=== PATIENT | male | born 1955 | race African-American/Black ===

== ENCOUNTER 2018-09-11 13:03 | Inpatient (IN) | payer OTHER ==
[2018-09-11 13:55] VITALS: BMI 25.9
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
[2018-09-11] MEDS ORDERED: MAGNESIUM HYDROX 2400MG/30ML ORAL SUSPENSION 30 ML CUP PO PRN (18:18)
[2018-09-11] MEDS ORDERED: MAG HYDROX/AL HYDROX/SIMETH 30 ML UNIT-DOSE CUP PO PRN (18:18)
[2018-09-11] MEDS ORDERED: ACETAMINOPHEN 325 MG TABLET (FP) PO PRN (18:18)
[2018-09-11] MEDS ORDERED: MENTHOL/PHENOL 1 EACH UD MM PRN (18:18)
[2018-09-11] MEDS ORDERED: LOPERAMIDE HCL 2 MG CAPSULE PO PRN (18:18)
[2018-09-11] MEDS ORDERED: P-EPHED 60MG/TRIPROLIDI 2.5MG TABLET PO PRN (18:18)
[2018-09-11] MEDS ORDERED: IBUPROFEN 400 MG TABLET (FP) PO PRN (18:18)
[2018-09-11] MEDS ORDERED: MAGNESIUM CITRATE 300 ML BOTTLE PO PRN (18:18)
[2018-09-11] MEDS ORDERED: NICOTINE POLACRILEX 2 MG GUM BC PRN (18:18)
[2018-09-11] MEDS ORDERED: guaiFENesin/D-METHORPHAN HB 10 ML UNIT-DOSE CUPS PO PRN (18:18)
[2018-09-11] MEDS ORDERED: METHADONE HCL 10 MG TABLET (FOR DETOX USE ONLY) PO ONE ×2 (18:20→23:00)
[2018-09-11] MEDS: diazePAM 5 MG TABLET PO PRN (19:56)
[2018-09-11] MEDS ORDERED: cloNIDine HCL 0.1 MG TABLET PO ONE (20:24)
--- NOTE | 2018-09-11 20:24 | PN ---
S Progress Note Note: Current B/P: 190/102 and 184/112. HR: 68. Patient states did not take B/P meds today. Currently demonstrating withdrawal symptoms. Will give once dose of CloNidine 0.2 mg.
[2018-09-11] MEDS: ATORVASTATIN CA 10 MG TABLET (FP) PO SCH (23:11)
[2018-09-11] MEDS: THIAMINE HCL 100 MG TABLET (FP) PO SCH (23:12)
[2018-09-12] MEDS: diazePAM 5 MG TABLET PO PRN ×2 (06:33→23:14)
[2018-09-12] MEDS ORDERED: METHADONE HCL 10 MG TABLET (FOR DETOX USE ONLY) PO ONE (10:00)
[2018-09-12 10:24] LABS: HEMATOCRIT 39.4 % (35.4-49); HEMOGLOBIN 13.3 GM/dL (11.7-16.9); MCH 28.5 pg (25.7-33.7); MCHC 33.8 g/dl (32.0-35.9); MEAN CELL VOLUME 84.3 fl (80-96); MEAN PLT VOLUME 10.1 fl (7.5-11.1); PLATELET COUNT 173 K/MM3 (134-434); RBC 4.67 M/mm3 (4.00-5.60); RDW 14.5 % (11.9-15.9); WHITE BLOOD COUNT 3.8 K/mm3 (4.0-10.0)
[2018-09-12 10:26] LABS: URINE APPEARANCE CLEAR; URINE BILIRUBIN NEGATIVE (<2.0 mg/dL); URINE COLOR LTYELLOW; URINE GLUCOSE (UA) NEGATIVE (NEGATIVE); URINE KETONE NEGATIVE (NEGATIVE); URINE LEUK ESTERASE NEGATIVE (NEGATIVE); URINE NITRITE NEGATIVE (NEGATIVE); URINE PROTEIN NEGATIVE (NEGATIVE)
[2018-09-12] MEDS: HYDROCHLOROTHIAZIDE 25 MG TABLET (FP) PO SCH (10:57)
[2018-09-12] MEDS: METOPROLOL TARTRATE 50 MG TABLET (FP) PO SCH (10:57)
[2018-09-12] MEDS: amLODIPine BESYLATE 10 MG TABLET (FP) PO SCH (10:57)
[2018-09-12] MEDS: LISINOPRIL 10 MG TABLET (FP) PO SCH (10:58)
[2018-09-12] MEDS: PRENATAL VITAMINS W/ FOLIC ACID TABLET (FP) PO SCH (10:58)
[2018-09-12] MEDS: NICOTINE 7 MG/24 HOURS TOPICAL PATCH TD SCH (10:58)
[2018-09-12 11:01] LABS: ALBUMIN 3.3 g/dl (3.4-5.0); ALK PHOS 92 U/L (45-117); ANION GAP 7 MMOL/L (8-16); BILIRUBIN,TOTAL 0.9 mg/dL (0.2-1); BLOOD UREA NITROGEN 19 mg/dL (7-18); CALCIUM 8.9 mg/dL (8.5-10.1); CHLORIDE 105 mmol/L (98-107); CO2 28 mmol/L (21-32); CREATININE 1.1 mg/dL (0.55-1.3); GLUCOSE,RANDOM 137 mg/dL (74-106); POTASSIUM 3.7 mmol/L (3.5-5.1); SGOT/AST 14 U/L (15-37); SGPT/ALT 22 U/L (13-61); SODIUM 140 mmol/L (136-145); TOT PROT 6.2 g/dl (6.4-8.2)
--- NOTE | 2018-09-12 13:54 | PN ---
S CIWA - CIWA Score Nausea/Vomitin-No Nausea/No Vomiting Muscle Tremors: 4-Moderate,w/Arms Extend Anxiety: 4-Mod. Anxious/Guarded Agitation: 4-Moderately Restless Paroxysmal Sweats: 1-Minimal Palms Moist Orientation: 0-Oriented Tacttile Disturbances: 0-None Auditory Disturbances: 0-None Visual Disturbances: 0-None Headache: 0-None Present CIWA-Ar Total Score: 13 S COWS - Scale Resting Pulse: 0= [place] 80 or Below Sweatin= Chills/Flushing Restless Observation: 0= Sits Still Pupil Size: 0= Normal to Room Light Bone or Joint Aches: 4=Acute Joint/Muscle Pain Runny Nose/ Eye Tearin= None GI Upset > 30mins: 0= None Tremor Observation of Outstretched Hands: 2= Slight Tremor Visible Yawning Observation: 1= 1-2x During Session Anxiety or Irritability: 2=Irritable/Anxious Goose Flesh Skin: 0=Smooth Skin COWS Score: 10 S Progress Note (SOAP) Subjective: ANXIETY, SWEATS, FATIGUE. Objective: 09/12/18 13:55 Vital Signs 09/12/18 09/12/18 09/12/18 06:00 07:00 10:04 Temperature 98.1 F 97.7 F Pulse Rate 56 L 59 L 63 Respiratory 18 18 18 Rate Blood Pressure 168/98 139/97 120/72 Laboratory Tests 09/12/18 09/12/18 09/12/18 07:40 07:40 07:40 WBC 3.8 L RBC 4.67 Hgb 13.3 Hct 39.4 MCV 84.3 MCH 28.5 MCHC 33.8 RDW 14.5 Plt Count 173 MPV 10.1 Sodium 140 Potassium 3.7 Chloride 105 Carbon Dioxide 28 Anion Gap 7 L BUN 19 H Creatinine 1.1 Creat Clearance w eGFR > 60 Random Glucose 137 H Calcium 8.9 Total Bilirubin 0.9 AST 14 L ALT 22 Alkaline Phosphatase 92 Total Protein 6.2 L Albumin 3.3 L Urine Color Urine Appearance Urine pH Ur Specific [place] Urine Protein Urine Glucose (UA) Urine Ketones Urine Blood Urine Nitrite Urine Bilirubin Urine Urobilinogen Ur Leukocyte Esterase RPR Titer Nonreactive HIV 1&2 Antibody Screen HIV P24 Antigen 09/12/18 09/12/18 07:40 07:40 WBC RBC Hgb Hct MCV MCH MCHC RDW Plt Count MPV Sodium Potassium Chloride Carbon Dioxide Anion Gap BUN Creatinine Creat Clearance w eGFR Random Glucose Calcium Total Bilirubin AST ALT Alkaline Phosphatase Total Protein Albumin Urine Color Ltyellow Urine Appearance Clear Urine pH 6.0 Ur Specific [place] 1.020 Urine Protein Negative Urine Glucose (UA) Negative Urine Ketones Negative Urine Blood Negative Urine Nitrite Negative Urine Bilirubin Negative Urine Urobilinogen 2.0 Ur Leukocyte Esterase Negative RPR Titer HIV 1&2 Antibody Screen Negative HIV P24 Antigen Negative Assessment: 09/12/18 13:55 WITHDRAWAL SX Plan: CONTINUE DETOX
--- NOTE | 2018-09-12 22:18 | EKG ---
Test Reason : Blood Pressure : / mmHG Vent. Rate : 061 BPM Atrial Rate : 061 BPM P-R Int : 164 ms QRS Dur : 090 ms QT Int : 464 ms P-R-T Axes : 071 062 061 degrees QTc Int : 467 ms NORMAL SINUS RHYTHM POSSIBLE LEFT ATRIAL ENLARGEMENT LEFT VENTRICULAR HYPERTROPHY ABNORMAL ECG NO PREVIOUS ECGS AVAILABLE Confirmed by ELIEZER AUGUST MD ([id number]) on 09/12/2018 10:18:01 PM Referred By: Confirmed By:ELIEZER AUGUST MD
[2018-09-12] MEDS: hydrOXYzine PAMOATE 50 MG CAPSULE (FP) PO PRN (23:14)
[2018-09-12] MEDS: THIAMINE HCL 100 MG TABLET (FP) PO SCH (23:14)
[2018-09-12] MEDS: ATORVASTATIN CA 10 MG TABLET (FP) PO SCH (23:14)
[2018-09-13] MEDS ORDERED: METHADONE HCL 5 MG TABLET (FOR DETOX USE ONLY) PO ONE (10:00)
[2018-09-13] MEDS: NICOTINE 7 MG/24 HOURS TOPICAL PATCH TD SCH (10:27)
[2018-09-13] MEDS: HYDROCHLOROTHIAZIDE 25 MG TABLET (FP) PO SCH (10:27)
[2018-09-13] MEDS: PRENATAL VITAMINS W/ FOLIC ACID TABLET (FP) PO SCH (10:27)
[2018-09-13] MEDS: amLODIPine BESYLATE 10 MG TABLET (FP) PO SCH (10:27)
[2018-09-13] MEDS: METOPROLOL TARTRATE 50 MG TABLET (FP) PO SCH (10:27)
[2018-09-13] MEDS: LISINOPRIL 10 MG TABLET (FP) PO SCH (10:29)
--- NOTE | 2018-09-13 16:47 | PN ---
S COWS - Scale Resting Pulse: 0= [place] 80 or Below Sweatin= Chills/Flushing Restless Observation: 3= Extraneous Movement Pupil Size: 0= Normal to Room Light Bone or Joint Aches: 2= Severe Diffuse Aches Runny Nose/ Eye Tearin= Runny Nose/Eyes GI Upset > 30mins: 1= Stomach Cramp Tremor Observation of Outstretched Hands: 2= Slight Tremor Visible Yawning Observation: 0= None Anxiety or Irritability: 1=Feels Anxious/Irritable Goose Flesh Skin: 0=Smooth Skin COWS Score: 12 S Progress Note (SOAP) Subjective: Sweating, interrupted sleep Objective: 09/13/18 16:43 Last Vital Signs Temp Pulse Resp BP Pulse Ox 97.9 F 57 L 18 134/98 09/13/18 13:29 09/13/18 13:29 09/13/18 13:29 09/13/18 13:29 Laboratory Tests 09/12/18 09/12/18 09/12/18 07:40 07:40 07:40 WBC 3.8 L RBC 4.67 Hgb 13.3 Hct 39.4 MCV 84.3 MCH 28.5 MCHC 33.8 RDW 14.5 Plt Count 173 MPV 10.1 Sodium 140 Potassium 3.7 Chloride 105 Carbon Dioxide 28 Anion Gap 7 L BUN 19 H Creatinine 1.1 Creat Clearance w eGFR > 60 Random Glucose 137 H Calcium 8.9 Total Bilirubin 0.9 AST 14 L ALT 22 Alkaline Phosphatase 92 Total Protein 6.2 L Albumin 3.3 L Urine Color Urine Appearance Urine pH Ur Specific [place] Urine Protein Urine Glucose (UA) Urine Ketones Urine Blood Urine Nitrite Urine Bilirubin Urine Urobilinogen Ur Leukocyte Esterase RPR Titer Nonreactive HIV 1&2 Antibody Screen HIV P24 Antigen 09/12/18 09/12/18 07:40 07:40 WBC RBC Hgb Hct MCV MCH MCHC RDW Plt Count MPV Sodium Potassium Chloride Carbon Dioxide Anion Gap BUN Creatinine Creat Clearance w eGFR Random Glucose Calcium Total Bilirubin AST ALT Alkaline Phosphatase Total Protein Albumin Urine Color Ltyellow Urine Appearance Clear Urine pH 6.0 Ur Specific [place] 1.020 Urine Protein Negative Urine Glucose (UA) Negative Urine Ketones Negative Urine Blood Negative Urine Nitrite Negative Urine Bilirubin Negative Urine Urobilinogen 2.0 Ur Leukocyte Esterase Negative RPR Titer HIV 1&2 Antibody Screen Negative HIV P24 Antigen Negative Labs reviewed: serum glucose 137 Assessment: 09/13/18 16:45 Withdrawal symptoms Noted with hyperglycemia Plan: Continue detox Encouraged PO water hydration Hyperglycemia: could be r/t alcoholism, repeat fasting glucose
[2018-09-14] MEDS: THIAMINE HCL 100 MG TABLET (FP) PO SCH ×2 (00:17→23:12)
[2018-09-14] MEDS: ATORVASTATIN CA 10 MG TABLET (FP) PO SCH ×2 (00:17→23:11)
[2018-09-14] MEDS ORDERED: METOPROLOL TARTRATE 50 MG TABLET (FP) PO SCH (06:51)
[2018-09-14] MEDS ORDERED: LISINOPRIL 10 MG TABLET (FP) PO SCH (06:51)
[2018-09-14] MEDS: METOPROLOL TARTRATE 50 MG TABLET (FP) PO SCH (07:11)
[2018-09-14] MEDS: LISINOPRIL 10 MG TABLET (FP) PO SCH (07:12)
[2018-09-14] MEDS ORDERED: METHADONE HCL 5 MG TABLET (FOR DETOX USE ONLY) PO ONE (10:00)
[2018-09-14] MEDS: HYDROCHLOROTHIAZIDE 25 MG TABLET (FP) PO SCH (10:50)
[2018-09-14] MEDS: NICOTINE 7 MG/24 HOURS TOPICAL PATCH TD SCH (10:50)
[2018-09-14] MEDS: amLODIPine BESYLATE 10 MG TABLET (FP) PO SCH (10:50)
[2018-09-14] MEDS: PRENATAL VITAMINS W/ FOLIC ACID TABLET (FP) PO SCH (10:50)
--- NOTE | 2018-09-14 13:58 | PN ---
BHS Progress Note (SOAP) Subjective: GOOSE BUMPS SWEATS Objective: 09/14/18 13:57 IN BED A & OX 3 NOT IN ACUTE DISTRESS Vital Signs Temperature 98.4 F 09/14/18 09:15 Pulse Rate 61 09/14/18 09:15 Respiratory Rate 16 09/14/18 09:15 Blood Pressure 154/77 09/14/18 09:15 O2 Sat by Pulse Oximetry (%) Laboratory Last Values WBC 3.8 K/mm3 (4.0-10.0) L 09/12/18 07:40 RBC 4.67 M/mm3 (4.00-5.60) 09/12/18 07:40 Hgb 13.3 GM/dL (11.7-16.9) 09/12/18 07:40 Hct 39.4 % (35.4-49) 09/12/18 07:40 MCV 84.3 fl (80-96) 09/12/18 07:40 MCH 28.5 pg (25.7-33.7) 09/12/18 07:40 MCHC 33.8 g/dl (32.0-35.9) 09/12/18 07:40 RDW 14.5 % (11.9-15.9) 09/12/18 07:40 Plt Count 173 K/MM3 (134-434) 09/12/18 07:40 MPV 10.1 fl (7.5-11.1) 09/12/18 07:40 Sodium 140 mmol/L (136-145) 09/12/18 07:40 Potassium 3.7 mmol/L (3.5-5.1) 09/12/18 07:40 Chloride 105 mmol/L (98-107) 09/12/18 07:40 Carbon Dioxide 28 mmol/L (21-32) 09/12/18 07:40 Anion Gap 7 MMOL/L (8-16) L 09/12/18 07:40 BUN 19 mg/dL (7-18) H 09/12/18 07:40 Creatinine 1.1 mg/dL (0.55-1.3) 09/12/18 07:40 Creat Clearance w eGFR > 60 (>60) 09/12/18 07:40 Random Glucose 137 mg/dL (74-106) H 09/12/18 07:40 Fasting Glucose 149 mg/dL (74-106) H 09/14/18 07:40 Calcium 8.9 mg/dL (8.5-10.1) 09/12/18 07:40 Total Bilirubin 0.9 mg/dL (0.2-1) 09/12/18 07:40 AST 14 U/L (15-37) L 09/12/18 07:40 ALT 22 U/L (13-61) 09/12/18 07:40 Alkaline Phosphatase 92 U/L (45-117) 09/12/18 07:40 Total Protein 6.2 g/dl (6.4-8.2) L 09/12/18 07:40 Albumin 3.3 g/dl (3.4-5.0) L 09/12/18 07:40 Urine Color Ltyellow 09/12/18 07:40 Urine Appearance Clear 09/12/18 07:40 Urine pH 6.0 (5.0-8.0) 09/12/18 07:40 Ur Specific [place] 1.020 (1.010-1.035) 09/12/18 07:40 Urine Protein Negative (NEGATIVE) 09/12/18 07:40 Urine Glucose (UA) Negative (NEGATIVE) 09/12/18 07:40 Urine Ketones Negative (NEGATIVE) 09/12/18 07:40 Urine Blood Negative (NEGATIVE) 09/12/18 07:40 Urine Nitrite Negative (NEGATIVE) 09/12/18 07:40 Urine Bilirubin Negative (<2.0 mg/dL) 09/12/18 07:40 Urine Urobilinogen 2.0 mg/dL (0.2-1.0) 09/12/18 07:40 Ur Leukocyte Esterase Negative (NEGATIVE) 09/12/18 07:40 RPR Titer Nonreactive (NONREACTIVE) 09/12/18 07:40 HIV 1&2 Antibody Screen Negative 09/12/18 07:40 HIV P24 Antigen Negative 09/12/18 07:40 Assessment: 09/14/18 13:57 WITHDRAWAL SX ELEVATED FASTING GLUCOSE Plan: CONTINUE DETOX CONTINUE INCREASED WATER HYDRATION DIET CHANGED TO NO CONCENTRATED DIET
[2018-09-14] MEDS: hydrOXYzine PAMOATE 50 MG CAPSULE (FP) PO PRN (23:11)
[2018-09-14] MEDS: MELATONIN 5 MG TABLETS PO PRN (23:12)
[2018-09-15] MEDS: METOPROLOL TARTRATE 50 MG TABLET (FP) PO SCH (06:29)
[2018-09-15] MEDS: LISINOPRIL 10 MG TABLET (FP) PO SCH (07:39)
[2018-09-15] MEDS ORDERED: METHADONE HCL 10 MG TABLET (FOR DETOX USE ONLY) PO ONE (10:00)
[2018-09-15] MEDS: NICOTINE 7 MG/24 HOURS TOPICAL PATCH TD SCH (10:12)
[2018-09-15] MEDS: PRENATAL VITAMINS W/ FOLIC ACID TABLET (FP) PO SCH (10:13)
[2018-09-15] MEDS: amLODIPine BESYLATE 10 MG TABLET (FP) PO SCH (10:13)
[2018-09-15] MEDS: HYDROCHLOROTHIAZIDE 25 MG TABLET (FP) PO SCH (10:13)
--- NOTE | 2018-09-15 13:36 | PN ---
BHS Progress Note (SOAP) Subjective: Patient denies current Withdrawal / Detox symptoms and reports that he feels well overall. Objective: PATIENT A & O X 2 (UNCERTAIN ABOUT CURRENT DAY / DATE). PATIENT OBSERVED AMBULATING ON UNIT. IN NO ACUTE DISTRESS. 09/15/18 13:32 Vital Signs Temperature 97.9 F 09/15/18 10:00 Pulse Rate 51 L 09/15/18 10:00 Respiratory Rate 16 09/15/18 10:00 Blood Pressure 130/82 09/15/18 10:00 O2 Sat by Pulse Oximetry (%) Laboratory Tests 09/12/18 09/12/18 09/12/18 07:40 07:40 07:40 WBC 3.8 L RBC 4.67 Hgb 13.3 Hct 39.4 MCV 84.3 MCH 28.5 MCHC 33.8 RDW 14.5 Plt Count 173 MPV 10.1 Sodium 140 Potassium 3.7 Chloride 105 Carbon Dioxide 28 Anion Gap 7 L BUN 19 H Creatinine 1.1 Creat Clearance w eGFR > 60 Random Glucose 137 H Fasting Glucose Calcium 8.9 Total Bilirubin 0.9 AST 14 L ALT 22 Alkaline Phosphatase 92 Total Protein 6.2 L Albumin 3.3 L Urine Color Urine Appearance Urine pH Ur Specific [place] Urine Protein Urine Glucose (UA) Urine Ketones Urine Blood Urine Nitrite Urine Bilirubin Urine Urobilinogen Ur Leukocyte Esterase RPR Titer Nonreactive HIV 1&2 Antibody Screen HIV P24 Antigen 09/12/18 09/12/18 09/14/18 07:40 07:40 07:40 WBC RBC Hgb Hct MCV MCH MCHC RDW Plt Count MPV Sodium Potassium Chloride Carbon Dioxide Anion Gap BUN Creatinine Creat Clearance w eGFR Random Glucose Fasting Glucose 149 H Calcium Total Bilirubin AST ALT Alkaline Phosphatase Total Protein Albumin Urine Color Ltyellow Urine Appearance Clear Urine pH 6.0 Ur Specific [place] 1.020 Urine Protein Negative Urine Glucose (UA) Negative Urine Ketones Negative Urine Blood Negative Urine Nitrite Negative Urine Bilirubin Negative Urine Urobilinogen 2.0 Ur Leukocyte Esterase Negative RPR Titer HIV 1&2 Antibody Screen Negative HIV P24 Antigen Negative LABS NOTED. Assessment: 09/15/18 13:32 WITHDRAWAL SYMPTOMS. LEUKOPENIA. 09/15/18 15:00 Plan: CONTINUE DETOX. PATIENT SCHEDULED FOR D/C TOMORROW. PATIENT DECLINED OFFER OF MEDICATION PRESCRIPTION FOR HOME MEDICATION, NOTING THAT HE CURRENTLY HAS ADEQUATE SUPPLIES OF ALL PRESCRIBED HOME MEDICATIONS AT HOME.
[2018-09-15] MEDS: ATORVASTATIN CA 10 MG TABLET (FP) PO SCH (22:08)
[2018-09-15] MEDS: THIAMINE HCL 100 MG TABLET (FP) PO SCH (22:08)
[2018-09-15] MEDS: MELATONIN 5 MG TABLETS PO PRN (22:08)
[2018-09-16] MEDS ORDERED: METHADONE HCL 5 MG TABLET (FOR DETOX USE ONLY) PO ONE (06:00)
[2018-09-16] MEDS: LISINOPRIL 10 MG TABLET (FP) PO SCH (06:27)
[2018-09-16] MEDS: METOPROLOL TARTRATE 50 MG TABLET (FP) PO SCH (06:27)
[2018-09-16 09:25] VITALS: BP 139/91; PULSE 55; TEMP 98.1
--- NOTE | 2018-09-16 20:27 | DS ---
[facility] Detox Discharge Summary Admission Date: 09/11/18 Discharge Date: 09/16/18 - History Present History: Opioid Dependence Additional Comments[facility] [place]. PATIENT DECLINED OFFER OF MEDICATION PRESCRIPTION FOR HOME MEDICATION AT TIME OF DISCHARGE FROM DETOX, NOTING THAT HE CURRENTLY HAS ADEQUATE SUPPLIES OF ALL PRESCRIBED HOME MEDICATIONS AT HOME. PATIENT ADVISED TO FOLLOW-UP WITH VOCATIONAL REHABILITATION CONSULTANT WHEN POSSIBLE AFTER DISCHARGE FROM DETOX UNIT FOR GENERAL MEDICAL ASSESSMENT AND FOR HISTORY OF LEUKOPENIA NOTED AND FOR ELEVATED ADMISSION RANDOM GLUCOSE AND FASTING GLUCOSE LEVELS NOTED WHILE ADMITTED FOR DETOX. PATIENT VERBALIZED UNDERSTANDING OF RECOMMENDATION. COPIES OF ALL LAB RESULTS DRAWN WHILE ADMITTED FOR DETOX GIVEN TO PATIENT T O TAKE WITH HIM AT TIME OF DISCHARGE FORM DETOX UNIT. PATIENT WAS DISCHARGED FROM DETOX UNIT IN STABLE MEDICAL CONDITION. Pertinent Past History: History of Hypertension, History of Hypercholesterolemia, History of Cerebrovascular Accident, Tobacco Use. - Physical Exam Results Vital Signs: Vital Signs Temperature 98.1 F 09/16/18 09:25 Pulse Rate 55 L 09/16/18 09:25 Respiratory Rate 18 09/16/18 09:25 Blood Pressure 139/91 09/16/18 09:25 O2 Sat by Pulse Oximetry (%) Pertinent Admission Physical Exam Findings: WITHDRAWAL SYMPTOMS. Laboratory Tests 09/12/18 09/12/18 09/12/18 07:40 07:40 07:40 WBC 3.8 L RBC 4.67 Hgb 13.3 Hct 39.4 MCV 84.3 MCH 28.5 MCHC 33.8 RDW 14.5 Plt Count 173 MPV 10.1 Sodium 140 Potassium 3.7 Chloride 105 Carbon Dioxide 28 Anion Gap 7 L BUN 19 H Creatinine 1.1 Creat Clearance w eGFR > 60 Random Glucose 137 H Fasting Glucose Calcium 8.9 Total Bilirubin 0.9 AST 14 L ALT 22 Alkaline Phosphatase 92 Total Protein 6.2 L Albumin 3.3 L Urine Color Urine Appearance Urine pH Ur Specific [place] Urine Protein Urine Glucose (UA) Urine Ketones Urine Blood Urine Nitrite Urine Bilirubin Urine Urobilinogen Ur Leukocyte Esterase RPR Titer Nonreactive HIV 1&2 Antibody Screen HIV P24 Antigen 09/12/18 09/12/18 09/14/18 07:40 07:40 07:40 WBC RBC Hgb Hct MCV MCH MCHC RDW Plt Count MPV Sodium Potassium Chloride Carbon Dioxide Anion Gap BUN Creatinine Creat Clearance w eGFR Random Glucose Fasting Glucose 149 H Calcium Total Bilirubin AST ALT Alkaline Phosphatase Total Protein Albumin Urine Color Ltyellow Urine Appearance Clear Urine pH 6.0 Ur Specific [place] 1.020 Urine Protein Negative Urine Glucose (UA) Negative Urine Ketones Negative Urine Blood Negative Urine Nitrite Negative Urine Bilirubin Negative Urine Urobilinogen 2.0 Ur Leukocyte Esterase Negative RPR Titer HIV 1&2 Antibody Screen Negative HIV P24 Antigen Negative LABS NOTED. - Treatment Hospital Course: Detox Protocol Followed, Detoxed Safely, Responded well, Discharged Condition Good Patient has Accepted a Rehab Referral to: PATIENT GOING TO [facility] ([place], [place]). - Medication Discharge Medications: Ambulatory Orders Amlodipine Besylate 10 mg PO DAILY 09/11/18 Hydrochlorothiazide 25 mg PO DAILY 09/11/18 Lisinopril 10 mg PO DAILY 09/11/18 Metoprolol Tartrate 50 mg PO DAILY 09/11/18 Pravastatin Sodium 20 mg PO HS 09/11/18 - Diagnosis (1) HLD (hyperlipidemia) Status: Chronic Qualifiers: Hyperlipidemia type: unspecified Qualified Code(s): E78.5 - Hyperlipidemia , unspecified (2) Leukopenia Status: Acute Qualifiers: Leukopenia type: unspecified Qualified Code(s): D72.819 - Decreased white blood cell count, unspecified (3) Opioid dependence with withdrawal Status: Acute (4) HTN (hypertension) Status: Chronic Qualifiers: Hypertension type: essential hypertension Qualified Code(s): I10 - Essential (primary) hypertension (5) Tobacco use Status: Chronic - AMA Did Patient Leave Against Medical Advice: No
== END 2018-09-16 09:11 | disposition home or self-care (01) | DRG 773 ==
LOC: YASAS 13:03 → Y6N 17:53
PROVIDERS: ADMIT Surgery; ATTEND Surgery
PROC: HZ2ZZZZ Detoxification Services for Substance Abuse Treatment (ICD-10-PCS; principal; 2018-09-11)
DX: F11.23 Opioid dependence with withdrawal (principal); I10 Essential (primary) hypertension; E78.5 Hyperlipidemia, unspecified; E78.00 Pure hypercholesterolemia, unspecified; D72.819 Decreased white blood cell count, unspecified; R73.9 Hyperglycemia, unspecified; Z86.73 Personal history of transient ischemic attack (TIA), and cerebral infarction without residual deficits; Z72.0 Tobacco use
CPT/HCPCS: 36415; 80053; 81003; 82947; 85027; 86593; 87389; 93005; 93010; J0735